=== PATIENT | female | born 1995 | race Caucasian/White ===

== ENCOUNTER 2025-02-05 03:26 | Emergency (ER) | payer OTHER, SELFPAY ==
[2025-02-05 04:03] LABS: Bacteria/HPF None Seen HPF (None Seen); CAUTI Indications for Culture Pelvic or flank pain; Glucose, Urine (Dipstick) Normal (Negative); Leukocyte 25 Leu/uL (Negative); Protein, Urine (Dipstick) 30 mg/dL (Neg-Trace); RBC/HPF Greater than 50 HPF (0-3); Specific Gravity, Urine 1.040 (1.002-1.036)
[2025-02-05 04:04] LABS: #Basophils 0.03 10x3/uL (0.0-0.2); #Eosinophils 0.13 10x3/uL (0.0-0.7); #Monocytes 0.57 10x3/uL (0.11-0.59); #Neutrophils 2.36 10x3/uL (1.40-6.50); %Basophils 0.5 % (0.0-1.0); %Eosinophils 2.3 % (0.0-10.0); %Lymphocytes 44.9 % (21.0-51.0); %Monocytes 10.1 % (0.0-10.0); %Neutrophils 42.0 % (42.0-75.0); Hematocrit 41.2 % (36.0-47.0); Hemoglobin 13.6 g/dL (12.0-16.0); Mean Corpuscular Hemoglobin 27.0 pg (27.0-31.0); Mean Corpuscular Volume 81.9 fL (78.0-98.0); Platelet Count 263 10x3/uL (130-400); Red Blood Cell (RBC) Count 5.03 mill/uL (4.20-5.40); White Blood Cell (WBC) Count 5.63 10x3/uL (4.8-10.8)
[2025-02-05 04:11] LABS: Urine Culture Reflex No No
[2025-02-05] MEDS ORDERED: Ondansetron PF 4 MG/2 ML Vial ONE (04:11)
[2025-02-05 04:23] LABS: BHCG - Serum Negative (NEGATIVE); Pregs Control Background? CLEAR/WHITE (CLR/WHITE); Pregs Control Bar Appear? YES (CONTROL BAR)
[2025-02-05 04:24] LABS: ALT (SGPT) 8 U/L (Less than 34); AST (SGOT) 20 U/L (11-34); Albumin 4.0 g/dL (3.1-4.5); Alkaline Phosphatase 58 U/L (40-110); Anion Gap 14 mmol/L (10-20); BUN (Urea Nitrogen) 8 mg/dL (7.0-18.7); Bilirubin, Total 0.3 mg/dL (0.3-1.2); Calc. Creatinine Clearance 0 mL/min (70-130); Calcium 8.4 mg/dL (7.8-10.44); Carbon Dioxide 24 mmol/L (22-29); Chloride 107 mmol/L (98-107); Globulin 2.9 g/dL (2.4-3.5); Glucose 94 mg/dL (70-105); Potassium 3.5 mmol/L (3.5-5.1); Sodium 141 mmol/L (136-145)
== END 2025-02-05 07:15 | disposition home or self-care (01) ==
LOC: ERS 03:26
DX: N93.9 Abnormal uterine and vaginal bleeding, unspecified (principal); R29.700 NIHSS score 0
CPT/HCPCS: 36415; 76856; 80053; 81001; 84702; 84703; 85025; 86850; 86900; 86901; 93976; J2405